=== PATIENT | female | born 1985 | race American Indian/Alaskan Native ===

== ENCOUNTER 2018-03-26 06:00 | Inpatient (IN) | payer OTHER ==
[2018-03-26] MEDS ORDERED: Midazolam 2 MG/2 ML VIAL ONE (07:55)
[2018-03-26] MEDS ORDERED: Propofol 10 mg/ml Inj (20 ML) ONE (07:55)
[2018-03-26] MEDS ORDERED: Rocuronium 10 mg/ml (5 ml) ONE (07:56)
[2018-03-26] MEDS ORDERED: Succinylcholine Chloride 20 mg/ml Syr (5 ml) IV ONE (07:56)
[2018-03-26] MEDS ORDERED: ceFAZolin IV 2 gm in Dextrose 2 GM/50 ML BAG IVPB ONE (08:05)
[2018-03-26] MEDS ORDERED: EPINEPHrine 1:1000 Nasal Sol(30mL) ONE (08:05)
[2018-03-26] MEDS ORDERED: Neostigmine Methylsulfate 3mg/3ml Syringe IV ONE (10:25)
[2018-03-26] MEDS: HYDROmorphone 0.5 mg/0.5 ml ISec IVP PRN ×5 (11:42→12:45)
[2018-03-26] MEDS ORDERED: HYDROmorphone 0.5 mg/0.5 ml ISec ONE ×2 (11:44→11:54)
[2018-03-26] MEDS ORDERED: Bupivacaine 0.25% 20 ML INJ IJ ONE (12:16)
[2018-03-26] MEDS ORDERED: HYDROmorphone 0.5 mg/0.5 ml ISec IVP STA (12:19)
[2018-03-26] MEDS ORDERED: HYDROmorphone 1 mg/ml ISec ONE (12:21)
[2018-03-26] MEDS ORDERED: OXYCODONE ACETAMINOPHEN PO ONE ×2 (12:30)
[2018-03-26] MEDS ORDERED: DiphenhydrAMINE 50 mg/ml Inj ONE (13:01)
[2018-03-26] MEDS ORDERED: Lactated Ringer's 1,000 ML IV ONE (13:15)
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
--- NOTE | 2018-03-26 15:48 | PCM.ANESB1 ---
Interscalene Block - Brachial Plexus Date of Procedure: 03/26/18 Anesthesiologist: katie Pre-Procedure Diagnosis: right shoulder arthroscopy Post-Procedure Diagnosis: right shoulder arthroscopuy Procedure Performed: Interscalene Block of Brachial Plexus Right - Procedure Interscalene Block of Brachial Plexus: This procedure was explained to the patient that it is for post-operative pain management. Consent was obtained after a thorough discussion with the patient regarding the benefits and possible complications of local anesthetic block of the Brachial Plexus at the Interscalene area. The patient was brought to the Operating Room and standard monitors were applied. Time out was held with the circulating nurse to confirm the correct surgery and appropriate block. After applying Oxygen by nasal cannula and administering IV Sedation, the patient's head was gently rotated away from the operative shoulder and the anterior scalene groove was carefully palpated. The ultrasound transducer was then applied to the skin in the transverse plane and the brachial plexus was visualized lateral to the carotid artery and in between the anterior and middle scalene muscles. After identification,the anterior lateral portion of the neck was prepped with Betadine solution three times and Lidocaine 1% was injected subcutaneously for topical analgesia. At this point, a # 22 gauge Stimuplex 2 inches insulated needle was inserted into the interscalene groove and directed in a caudal and midline direction. The needle was inserted lateral to the ultrasound transducer in-plane towards the brachial plexus in a [id number] direction. Needle advancement was performed carefully under direct ultrasound visualization. After repeated negative aspiration,__5___cc of_.25% bupviciane____, were injected and this was followed with ___15__cc of _.25____% ___bupivicaine . Under ultrasound guidance the local anesthetics were observed surrounding the roots of the brachial plexus. The needle was removed intact and sterile dressing was applied. The patient had stable vital signs, was conscious and in no apparent distress. The patient tolerated the interscalene block of the bracheal plexus well with stable vital signs and was prepared for subsequent surgery.
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
[2018-03-26] MEDS ORDERED: ceFAZolin IV 1 gm in Dextrose 1 GM/50 ML BAG IVPB SCH (17:00)
[2018-03-26 19:31] VITALS: RESP 20
[2018-03-26] MEDS: MethylPREDNISolone 40 mg Vial IVP SCH (22:26)
[2018-03-26] MEDS: Lactated Ringer's 1,000 ML IV SCH (22:27)
[2018-03-27] MEDS: DiphenhydrAMINE 12.5 mg/5 ml LIQ UD (5 ml) PO SCH ×2 (00:37→10:26)
[2018-03-27] MEDS: Lactated Ringer's 1,000 ML IV SCH ×2 (01:57→06:01)
[2018-03-27 04:13] VITALS: TEMP 98.2
[2018-03-27 07:11] LABS: BASO % 0.4 % (0.0-2.0); HEMOGLOBIN 11.7 g/dL (11.0-16.0); LYMPH # 1.7 K/uL (1.0-4.3); LYMPH % 14.2 % (20.0-40.0); MEAN CELL VOLUME 91.5 fL (81.0-99.0); MEAN CORPUSCULAR HEMOGLOBIN 30.2 pg (27.0-31.0); MEAN PLATELET VOLUME 9.5 fL (7.2-11.7); MONO # 0.8 K/uL (0.0-0.8); MONO % 7.1 % (0.0-10.0); NEUT # 9.2 K/uL (1.8-7.0); NEUT % 78.3 % (50.0-75.0); NRBC % 0.1 % (0.0-2.0); RBC 3.88 Mil/uL (3.80-5.20); RED CELL DISTRIBUTION WIDTH 13.3 % (11.5-14.5); WHITE BLOOD COUNT 11.7 K/uL (4.8-10.8)
[2018-03-27 08:14] VITALS: BP 111/70; PULSE 95; O2SAT 98
[2018-03-27] MEDS: MethylPREDNISolone 40 mg Vial IVP SCH (10:26)
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
--- NOTE | 2018-03-29 23:46 | PCM.SURG1 ---
Surgeon's Initial Post Op Note - Surgeon's Notes Surgeon: Selam Smith MD Lockstitch Back Maker: Allison Chavira PA-C Type of Anesthesia: General Endo, Block Regional Pre-Operative Diagnosis: Right Shoulder: #1 biceps tenosynovitis/ possible partial tear. #2 SLAP / labral tear. #3 subacromial impingment. #4 subacromial bursitis. #5 parital rotator cuff tear Operative Findings: Right Shoulder: #1 biceps tenosynovitis with partial tear. #2 SLAP / degenerative labral tear. #3 subacromial impingment. #4 subacromial bursitis. #5 parital rotator cuff tear (no area of greater than 25 % tearing found). #6 chondral injury to glenoid (full thickness focal injury measuring [id number] at it's center) and humeral head (grade 3 injury at articular surface head measuring [id number]). #7 synovitis through out shoulder Post-Operative Diagnosis: Right Shoulder: #1 biceps tenosynovitis with partial tear. #2 SLAP / degenerative labral tear. #3 subacromial impingment. #4 subacromial bursitis. #5 parital rotator cuff tear (no area of greater than 25 % tearing found). #6 chondral injury to glenoid (full thickness focal injury measuring [id number] at it's center) and humeral head (grade 3 injury at articular surface head measuring [id number]). #7 synovitis through out shoulder Operation Performed: Right shoulder: #1 Open biceps subpect tenodesis. #2 Arthroscopic extensive debridement (including partial RTC tear/ deg SLAP tear/ biceps tenotomy). #3 Arthroscopic chondroplasty and microfracture glenoid. #4 Arthroscopic chondroplasty humeral head. #5 Arthroscopic extensive synovectomy. #6 Arthroscopic subacromial decompression w/ acromioplasty. #7 Arthroscopic intra-articular PRP injection Specimen/Specimens Removed: specimen= none. implants= Arthrex biocomposite bicpes tenodesis screw 7mmx19.5mm length. complications= none. . . I had multiple discussions with the pt pre-op about the benefits of undergoing a block post-op by anesthesia staff to the R shoulder especially in the setting of multiple allergies to narcotics/pain medications. Patient had documented allergic reaction to percocet in PACU. she agreed and I can attest to the intention for the pt to undergo a regional block post op by anesthesia staff to help contorl post-op pain of R shoulder. Estimated Blood Loss: EBL {In ML}: 10 Blood Products Given: N/A Drains Used: No Drains Post-Op Condition: Good Date of Surgery/Procedure: 03/26/18 Time of Surgery/Procedure: 09:00
--- NOTE | 2018-03-30 15:13 | CARD ---
APPROVED REPORT Date of service: 03/26/2018 EKG Measurement Heart [id number] <Conclusion> Sinus tachycardia ST & T wave abnormality, consider inferior ischemia Abnormal ECG
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
== END 2018-03-27 14:10 | disposition home or self-care (01) | DRG 941 ==
LOC: C.SDS 06:00 → C.9S 14:04 → C.6T 17:37
PROVIDERS: ADMIT Hospitalist; ATTEND Hospitalist
PROC: 0RBJ4ZZ Excision of Right Shoulder Joint, Percutaneous Endoscopic Approach (ICD-10-PCS; 2018-03-26)
PROC: 0RQJ4ZZ Repair Right Shoulder Joint, Percutaneous Endoscopic Approach (ICD-10-PCS; 2018-03-26)
PROC: 0RBJ4ZZ Excision of Right Shoulder Joint, Percutaneous Endoscopic Approach (ICD-10-PCS; 2018-03-26)
PROC: 0RNJ4ZZ Release Right Shoulder Joint, Percutaneous Endoscopic Approach (ICD-10-PCS; 2018-03-26)
PROC: 0KN Muscles, Release (ICD-10-PCS; 2018-03-26)
PROC: 3E0U4GC Introduction of Other Therapeutic Substance into Joints, Percutaneous Endoscopic Approach (ICD-10-PCS; 2018-03-26)
PROC: 0LS30ZZ Reposition Right Upper Arm Tendon, Open Approach (ICD-10-PCS; principal; 2018-03-26 07:45)
DX: S43.431D Superior glenoid labrum lesion of right shoulder, subsequent encounter (principal); S46.811D Strain of other muscles, fascia and tendons at shoulder and upper arm level, right arm, subsequent encounter; S43.111D Subluxation of right acromioclavicular joint, subsequent encounter; M75.21 Bicipital tendinitis, right shoulder; M75.41 Impingement syndrome of right shoulder; M75.51 Bursitis of right shoulder; I10 Essential (primary) hypertension; K31.84 Gastroparesis; L29.9 Pruritus, unspecified; Z90.49 Acquired absence of other specified parts of digestive tract